=== PATIENT | female | born 1965 | race Caucasian/White ===

== ENCOUNTER 2018-08-20 19:03 | Emergency (ER) | payer OTHER ==
[~2018-08-20] VITALS: Ht 175.3 cm; Wt 79.4 kg
[2018-08-20 19:21] VITALS: Ht 175.3 cm; Wt 79.4 kg
[2018-08-20 22:48] VITALS: BP 125/79
== END 2018-08-20 22:48 | disposition home or self-care (01) ==
LOC: ED 19:03
DX: S46.011A Strain of muscle(s) and tendon(s) of the rotator cuff of right shoulder, initial encounter (principal); Z85.43 Personal history of malignant neoplasm of ovary; W18.39XA Other fall on same level, initial encounter; Y93.66 Activity, soccer; Y92.89 Other specified places as the place of occurrence of the external cause; Y99.8 Other external cause status
CPT/HCPCS: J1885